=== PATIENT | male | born 1990 | race Caucasian/White ===

== ENCOUNTER → 2018-02-03 10:24 | Outpatient (CLI) | payer OTHER, MEDICAID, SELFPAY ==
[2018-02-03 11:31] LABS: Add Manual Diff / Slide Review NO; Basophils Percent Auto 0.6 % (0-2); Eosinophils Percent Auto 5.2 % (2-4); Hematocrit 43.1 % (41-53); Hemoglobin 14.6 g/dL (13.5-17.5); Lymphocytes Percent Auto 23.4 % (25-40); Mean Corpuscular HGB Conc 33.8 % (30-36); Mean Corpuscular Hemoglobin 28.2 PG (26-34); Mean Corpuscular Volume 83.4 fL (80-100); Monocytes Percent Auto 6.4 % (3-14); Neutrophils Absolute Auto 4800 /uL (3000-5900); Neutrophils Percent Auto 64.4 % (50-75); Platelet Count 211 X10^3/uL (150-400); Red Blood Cell Count 5.18 X10^6/uL (4.5-5.9); White Blood Cell Count 7.4 X10^3/uL (4.5-11.0)
[2018-02-03 11:54] LABS: Hemoglobin A1C% w Est Avg Glu 4.8 % (4.0-6.0)
[2018-02-03 12:12] LABS: Alanine Aminotransferase 75 IU/L (21-72); Albumin 4.3 g/dL (3.5-5.0); Albumin Globulin Ratio 1.5 (1.0-2.8); Alkaline Phosphatase 68 U/L (38-126); Aspartate Aminotransferase 39 IU/L (17-59); Bilirubin Total 0.6 mg/dL (0.2-1.3); Blood Urea Nitrogen 14 mg/dL (9-20); Calcium 9.3 mg/dL (8.4-10.2); Carbon Dioxide 28 mmol/L (22-32); Chloride 103 mmol/L (98-107); Cholesterol 212 mg/dL (140-199); Estimated Glomerular Filt Rate > 60.0 mL/min (>60); Globulin 2.8 g/dL (1.7-4.1); Glucose 86 mg/dL (70-100); HDL Cholesterol 57 mg/dL (40-60); HEMOLYSIS < 15 (0-50); LDL Cholesterol Calculated 129 mg/dL (<100); Potassium 5.3 mmol/L (3.4-5.1); Sodium 142 mmol/L (137-145); Total Protein 7.1 g/dL (6.3-8.2); Triglycerides 130 mg/dL (35-150)
== END ==
PROVIDERS: PCP Nurse Practitioner Family; Visit Provider Nurse Practitioner Family
DX: E66.01 Morbid (severe) obesity due to excess calories (principal); Z00.00 Encounter for general adult medical examination without abnormal findings; R53.83 Other fatigue
CPT/HCPCS: 36415; 80053; 80061; 83036; 84443; 85025

== ENCOUNTER → 2024-08-23 08:03 | Outpatient (CLI) | payer OTHER, SELFPAY ==
[2024-08-23 08:50] LABS: Add Manual Diff / Slide Review NO; Basophils Absolute Auto 0 /uL (0-100); Basophils Percent Auto 0.5 % (0-2); Eosinophils Absolute Auto 300 /uL (0-450); Eosinophils Percent Auto 4.5 % (2-4); Hematocrit 42.7 % (41-53); Lymphocytes Absolute Auto 1500 /uL (1100-4500); Lymphocytes Percent Auto 20.8 % (25-40); Mean Corpuscular HGB Conc 32.8 % (30-36); Mean Corpuscular Hemoglobin 27.1 PG (26-34); Mean Corpuscular Volume 82.8 fL (80-100); Monocytes Absolute Auto 500 /uL (0-900); Monocytes Percent Auto 7.4 % (3-14); Neutrophils Absolute Auto 4800 /uL (1500-7000); Neutrophils Percent Auto 66.8 % (50-75); Platelet Count 286 X10^3/uL (150-400); Red Blood Cell Count 5.16 X10^6/uL (4.5-5.9); Red Cell Distribution Width 16.4 % (11.6-14.8); White Blood Cell Count 7.2 X10^3/uL (4.5-11.0)
[2024-08-23 09:00] LABS: Appearance Urine UA CLEAR; Bilirubin Urine UA NEGATIVE (NEGATIVE); Color Urine UA YELLOW; Glucose Urine UA NEGATIVE (Negative); Ketones Urine UA NEGATIVE (NEGATIVE); Leukocyte Esterase Urine UA NEGATIVE (NEGATIVE); Nitrite Urine UA NEGATIVE (Negative); Occult Blood Urine UA NEGATIVE (Negative); Protein Urine UA NEGATIVE (Negative); Urobilinogen Urine UA 0.2 E.U./dL (0.2)
[2024-08-23 09:01] LABS: Urine Volume 10mL (spun)
[2024-08-23 09:04] LABS: Bacteria Urine None Seen; Culture Indicated Urine Cult Not Indicated; RBC Urine None Seen (0-5/HPF); Squamous Epithelial Cell Urine None Seen (0-5/HPF); WBC Urine None Seen (0-5/HPF)
[2024-08-23 09:10] LABS: Hemoglobin A1C% w Est Avg Glu 4.7 % (4.0-6.0)
[2024-08-23 09:12] LABS: Alanine Aminotransferase 92 IU/L (<50); Albumin 4.3 g/dL (3.5-5.0); Albumin Globulin Ratio 1.7 (1.0-2.8); Alkaline Phosphatase 86 U/L (38-126); Aspartate Aminotransferase 49 IU/L (17-59); BUN Creatinine Ratio 14.3 (6-22); Bilirubin Total 0.5 mg/dL (0.2-1.3); Blood Urea Nitrogen 12 mg/dL (9-20); Calcium 9.7 mg/dL (8.4-10.2); Carbon Dioxide 30 mmol/L (22-32); Chloride 103 mmol/L (98-107); Cholesterol 220 mg/dL (140-199); Estimated Glomerular Filt Rate > 60 mL/min (>60); Globulin 2.5 g/dL (1.7-4.1); Glucose 98 mg/dL (70-100); HDL Cholesterol 38 mg/dL (40-60); HEMOLYSIS < 15 (0-50); LDL Cholesterol Calculated 158 mg/dL (<100); Potassium 4.2 mmol/L (3.4-5.1); Sodium 140 mmol/L (137-145); Total Protein 6.8 g/dL (6.3-8.2); Triglycerides 120 mg/dL (35-150)
[2024-08-23 09:41] LABS: TSH w/ Reflex to FT4 0.94 uIU/mL (0.47-4.68)
== END ==
PROVIDERS: PCP Family Medicine; Referring Provider Family Medicine; Visit Provider Family Medicine
DX: E66.9 Obesity, unspecified (principal); R35.0 Frequency of micturition; R53.83 Other fatigue
CPT/HCPCS: 36415; 80053; 80061; 81001; 83036; 84443; 85025

== ENCOUNTER → 2024-10-25 07:28 | Outpatient (CLI) | payer OTHER, SELFPAY ==
--- NOTE | 2024-10-25 07:29 | DI.RAD.S_ITS ---
PROCEDURE: XR CHEST 2V INDICATIONS: Chronic cough TECHNIQUE: 2 views of the chest were acquired. COMPARISON: None. FINDINGS: Surgical changes and devices: None. Lungs and pleura: Lungs are clear. No pleural effusions or pneumothorax. Mediastinum: Mediastinal contours are normal. Heart size is normal. Bones and chest wall: No suspicious bony abnormalities. Soft tissues appear unremarkable. IMPRESSION: No acute cardiopulmonary abnormality is seen. Dictated by: Gualberto Hodges M.D. on 10/26/2024 at 4:42 Approved by: Gualberto Hodges M.D. on 10/26/2024 at 4:42
--- NOTE | 2024-10-25 07:29 | DI.US.S_ITS ---
PROCEDURE: US ABDOMEN LIMITED INDICATIONS: Elevated LFT's TECHNIQUE: Real-time focused scanning was performed of the abdomen, with image documentation. COMPARISON: None. FINDINGS: Liver is enlarged measuring 20.5 cm with steatosis. Gallbladder demonstrates no stones. Wall thickness is normal. Common bile duct measures 4.2 cm. Visualized portions the pancreas are unremarkable. IMPRESSION: Hepatomegaly with steatosis. Dictated by: Lori Rosenberg M.D. on 10/25/2024 at 15:46 Approved by: Lori Rosenberg M.D. on 10/25/2024 at 15:47
== END ==
PROVIDERS: PCP Family Medicine; Referring Provider Family Medicine; Visit Provider Family Medicine
DX: K76.0 Fatty (change of) liver, not elsewhere classified (principal); R05.3 Chronic cough; R79.89 Other specified abnormal findings of blood chemistry
CPT/HCPCS: 71046; 76705

== ENCOUNTER → 2024-12-21 08:42 | Outpatient (CLI) | payer OTHER, SELFPAY ==
[2024-12-21 10:17] LABS: Alanine Aminotransferase 39 IU/L (<50); Albumin 4.4 g/dL (3.5-5.0); Albumin Globulin Ratio 1.8 (1.0-2.8); Alkaline Phosphatase 112 U/L (38-126); Aspartate Aminotransferase 27 IU/L (17-59); BUN Creatinine Ratio 8.8 (6-22); Bilirubin Total 0.8 mg/dL (0.2-1.3); Blood Urea Nitrogen 9 mg/dL (9-20); Calcium 9.6 mg/dL (8.4-10.2); Carbon Dioxide 29 mmol/L (22-32); Chloride 102 mmol/L (98-107); Estimated Glomerular Filt Rate > 60 mL/min (>60); Globulin 2.5 g/dL (1.7-4.1); Glucose 92 mg/dL (70-99); HEMOLYSIS < 15 (0-50); Potassium 4.4 mmol/L (3.4-5.1); Sodium 140 mmol/L (137-145); Total Protein 6.9 g/dL (6.3-8.2)
== END ==
PROVIDERS: PCP Family Medicine; Referring Provider Family Medicine; Visit Provider Family Medicine
DX: R79.89 Other specified abnormal findings of blood chemistry (principal)
CPT/HCPCS: 36415; 80053

== ENCOUNTER → 2024-12-28 12:33 | Outpatient (CLI) | payer OTHER, SELFPAY ==
--- NOTE | 2024-12-31 13:42 | DIET.OUTPTC ---
Dietary Outpatient Consultation Note Consultation Date: 12/28/2024 Assessment: 34 y M referred to dietitian for obesity, other specified health status, other specified phobia Pt reports bowel movement daily now. Improved PO intakes, but still having a container of gummy [place] from [employer] at night each day which results in him feeling nausea in the morning and difficulty eating (currently eat 3 oz canned chicken or try to in the morning). Came to conclusion gummy worms need to be replaced with another treat. Pt endorses not intentionally starving self. Working to improve intakes, but challenging in light of current situation. Current known intolerances: lactose, fructose, some gluten Pt lives in car with no refrigeration, no stove and wants to limit trash as much as possible Diet recall currently consist of: 3 oz canned chk in morning (sometimes not able to eat d/t nausea) Peanuts and fruit for lunch 7 oz canned chk for dinner and 1 container from the market of gummy worms kombucha for probiotics, will also have small loaf of sourdough bread sometimes 1/4-1/2 gallon of water Didn't tolerate the tuna. Ht: 5 ft 11 in Wt: 280 lb Weight History: 280 lb on 12/21/24 (-15% weight loss in 5 months, severe, -7.6% weight loss 3 months, severe) 303 lb on 09/23/24 (-8% weight loss in 2 months, severe) 330 lb on 07/16/24 Nutrition Diagnosis: Limited access to food related to limited finances and limited options for safe storage or prep of food aeb pt living car and reports needing low cost food options d/t limited finances Food and nutrition related knowledge deficit related to limited prior nutrition educ and difficulty managing GI issues aeb pt eating less than energy needs for weight loss, hx of IBS with difficulty managing symptoms with diet Interventions: -Brainstormed other tolerated options to replace gummy worms and other tolerated food option to provide protein needs Goals: -yogurt and granola in morning (checked brands and all low fodmaps) as trial for tolerance - dairy free yogurt = 20 g protein plus yogurt has probiotics, plan for this to transfer over to nighttime snack with chicken if patient able to tolerate it and replace the gummy worms, thus reducing nausea in the morning and increase PO intakes at breakfast -Check [employer] for pack of 2 boiled eggs to expand protein options and intake -Aiming for 70 g protein daily EER- MSJ w/o [id number]- caloric deficit = 1800 kcals, 70-85 g protein (16% kcals vs 1 g/kg of adjusted IBW) Monitoring/Evaluations: f/u in 4 wks Electronically Signed by: Shiloh Leblanc 12/31/24 13:42 Clinical Dietitian [address] [id number]
== END ==
PROVIDERS: PCP Family Medicine
DX: E66.9 Obesity, unspecified (principal); F40.8 Other phobic anxiety disorders; Z78.9 Other specified health status; Z71.3 Dietary counseling and surveillance; Z59.89 Other problems related to housing and economic circumstances; Z59.02 Unsheltered homelessness
CPT/HCPCS: 97803

== ENCOUNTER → 2025-08-12 10:39 | Outpatient (CLI) | payer OTHER, SELFPAY ==
[2025-08-12 11:18] LABS: Add Manual Diff / Slide Review NO; Hematocrit 42.3 % (41-53); Hemoglobin 14.3 g/dL (13.5-17.5); Lymphocytes Absolute Auto 1700 /uL (1100-4500); Mean Corpuscular HGB Conc 33.8 % (30-36); Mean Corpuscular Hemoglobin 27.2 PG (26-34); Mean Corpuscular Volume 80.6 fL (80-100); Platelet Count 260 X10^3/uL (150-400)
[2025-08-12 11:37] LABS: Alanine Aminotransferase 24 IU/L (<50); Albumin 4.1 g/dL (3.5-5.0); Albumin Globulin Ratio 1.5 (1.0-2.8); Alkaline Phosphatase 75 U/L (38-126); Blood Urea Nitrogen 12 mg/dL (9-20); Calcium 9.5 mg/dL (8.4-10.2); Carbon Dioxide 29 mmol/L (22-32); Chloride 104 mmol/L (98-107); Estimated Glomerular Filt Rate > 60 mL/min (>60); Globulin 2.7 g/dL (1.7-4.1); Glucose 85 mg/dL (70-99); HEMOLYSIS 15 (0-50); Potassium 4.0 mmol/L (3.4-5.1); Sodium 141 mmol/L (137-145); Total Protein 6.8 g/dL (6.3-8.2)
[2025-08-12 12:07] LABS: TSH w/ Reflex to FT4 0.86 uIU/mL (0.47-4.68)
== END ==
PROVIDERS: PCP Family Medicine; Referring Provider Family Medicine; Visit Provider Family Medicine
DX: M79.10 Myalgia, unspecified site (principal); M79.89 Other specified soft tissue disorders; R79.89 Other specified abnormal findings of blood chemistry
CPT/HCPCS: 36415; 80053; 84443; 85025